=== PATIENT | female | born 1980 | race Caucasian/White ===

== ENCOUNTER 2016-09-05 20:34 | Emergency (ER) | payer MEDICAID ==
[2016-09-05 20:46] VITALS: BP 131/86
[2016-09-05] MEDS ORDERED: Acetaminophen/oxyCODONE 325-5 MG Tab PO ONE (21:01)
[2016-09-05] MEDS ORDERED: Ondansetron 4 MG Tab.DIS PO ONE (21:08)
--- NOTE | 2016-09-05 22:01 | EDM.PDOC ---
ED HPI GENERAL MEDICAL PROBLEM - General Chief Complaint: Upper Extremity Injury/Pain Stated Complaint: POSS BROKEN WRIST Time Seen by Provider: 09/05/16 21:05 Source of Information: Reports: Patient History Limitations: Reports: No Limitations - History of Present Illness INITIAL COMMENTS - FREE TEXT/NARRATIVE: 36 year old female presents for evaluation and treatment of an injury to the right wrist. Injury occurred prior to arrival in the ER. Patient reports she slammed a door, the door came back at her and she attempted to stop it. She reports immediate pain and a deformity to the right wrist. No numbness or tingling. No previous injury to the right wrist. Patient is right handed. Onset: Today Location: Reports: Upper Extremity, Right Right Wrist Pain Score (Numeric/FACES): 10 - Related Data Allergies Allergy/AdvReac Type Severity Reaction Status Date / Time latex Allergy Rash Verified 08/10/15 02:41 Home Meds: Home Meds Acetaminophen/oxyCODONE [Percocet 325-5 MG] 1 tab PO Q6H PRN #15 tablet [Rx] Acetaminophen/oxyCODONE [Percocet 325-5 MG] 1 tab PO Q6H PRN #5 tablet 09/05/16 [Rx] Ondansetron [Zofran ODT] 4 mg PO Q8H PRN #10 tab.dis 09/05/16 [Rx] Ondansetron [Zofran ODT] 4 mg PO Q8H PRN #2 tab.dis 09/05/16 [Rx] Ondansetron [Zofran ODT] 4 mg PO Q8H PRN #5 tab.dis 09/05/16 [Rx] Past Medical History - Past Health History Medical/Surgical History: Denies Medical/Surgical History Gastrointestinal History: Reports: Other (See Below) Other Gastrointestinal History: Groin hernia 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: Neurological History: Reports: Migraines Psychiatric History: Reports: Anxiety, Depression Endocrine/Metabolic History: Reports: Diabetes, Type II Oncologic (Cancer) History: Reports: Cervix, Uterine - Past Surgical History HEENT Surgical History: Reports: Adenoidectomy, Tonsillectomy Female Surgical History: Reports: Section, Hysterectomy Musculoskeletal Surgical History: Reports: Arthroscopic Knee Social & Family History - Family History Family Medical History: Noncontributory - Tobacco Use Smoking Status *Q: Current Every Day Smoker Years of Tobacco use: 1 Packs/Tins Daily: 0.3 Second Hand Smoke Exposure: No - Caffeine Use Caffeine Use: Reports: None - Alcohol Use Days Per Week of Alcohol Use: 0 - Recreational Drug Use Recreational Drug Use: No Drug Use in Last 12 Months: Yes Recreational Drug Type: Reports: Marijuana/Hashish Recreational Drug Use Frequency: Socially Recreational Drug Last Use: 3-4 weeks ago Review of Systems - Review of Systems Review Of Systems: See Below Musculoskeletal: Reports: Arm Pain (right wrist pain), Joint Pain (right wrist pain), Other (deformity to the right wrist) Neurological: Denies: Numbness, Tingling ED EXAM, GENERAL - Physical Exam Exam: See Below Exam Limited By: No Limitations General Appearance: Alert, WD/WN, Mild Distress Respiratory/Chest: No Respiratory Distress Cardiovascular: Normal Peripheral Pulses, Regular Rate, Rhythm Peripheral Pulses: 2+: Radial (L), Radial (R) Extremities: Normal Capillary Refill, Limited Range of Motion (unable to move right wrist due to pain), Other (right snuff box tenderness; tenderness to the right distal radius and ulna; no pain to the right fingers and right metacarpals ) Neurological: Alert, Oriented, Normal Cognition Psychiatric: Normal Affect, Normal Mood Skin Exam: Warm, Dry ED TRAUMA EXTREMITY PROCEDURES - Splinting Right Upper Extremity Splint Site: right forearm Pre-Procedure NV Status: Normal Post-Procedure NV Status: Normal Splint Material: Other (orthoglass) Splint Design: Thumb Spica Applied & Form Fitted By: Provider, Nurse Provider Post-Splint Application NV Check: NV Status Normal, Good Position Complications: No Course - Vital Signs Last Recorded V/S: Last Vital Signs Temp 37.0 C 09/05/16 20:43 Pulse 87 09/05/16 20:43 Resp 16 09/05/16 20:43 BP 131/86 09/05/16 20:43 Pulse Ox 100 09/05/16 20:43 - Orders/Labs/Meds Meds: Medications Discontinued Medications Generic Name Dose Route Start Last Admin Trade Name Freq PRN Reason Stop Dose Admin Ondansetron HCl 4 mg 09/05/16 21:08 09/05/16 21:10 Zofran Odt PO 09/05/16 21:09 4 mg ONETIME ONE Administration Ondansetron HCl 8 mg 09/05/16 22:15 Zofran Odt .ROUTE 09/05/16 22:16 .STK-MED ONE Oxycodone/Acetaminophen 1 tab 09/05/16 21:01 09/05/16 21:08 Percocet 325-5 Mg PO 09/05/16 21:02 1 tab ONETIME ONE Administration Oxycodone/Acetaminophen 5 tab 09/05/16 22:15 Percocet 325-5 Mg .ROUTE 09/05/16 22:16 .STK-MED ONE - Radiology Interpretation Free Text/Narrative:: xray to the right wrist shows a comminuted fracture to the right distal radius and right scaphoid - Re-Assessments/Exams Free Text/Narrative Re-Assessment/Exam: 09/05/16 21:54 I reviewed the xrays with the patient. Patient was splinter in the thumb spika splint. Patient tolerated the procedure well. Percocet given for pain. Discharge instructions as documented. Departure - Departure Time of Disposition: 21:56 Disposition: Home, Self-Care 01 Condition: Fair Clinical Impression: Fracture of radius, Scaphoid fracture - Discharge Information Prescriptions: Acetaminophen/oxyCODONE [Percocet 325-5 MG] 1 tab PO Q6H PRN #5 tablet PRN Reason: Pain Acetaminophen/oxyCODONE [Percocet 325-5 MG] 1 tab PO Q6H PRN #15 tablet PRN Reason: Pain Ondansetron [Zofran ODT] 4 mg PO Q8H PRN #5 tab.dis PRN Reason: Nausea Ondansetron [Zofran ODT] 4 mg PO Q8H PRN #10 tab.dis PRN Reason: Nausea Ondansetron [Zofran ODT] 4 mg PO Q8H PRN #2 tab.dis PRN Reason: Nausea Instructions: Wrist Fracture Treated With Immobilization, [id number] Referrals: Katya Zelaya DO [Primary Care Provider] - Marbin Acharya MD [Physician] - Forms: ED Department Discharge Additional Instructions: You were given medication the ER that can affect your ability to drive and operate machinery. No driving or operating machinery within 12 hours of taking prescription narcotic pain medication. Zofran 1 tab sublingual every 8 hours as needed for nausea. Percocet 1 tab every 4-6 hours as needed for severe pain. No driving or operating machine within 12 hours of taking the Percocet. Percocet can be habit- forming, I recommend you take as few of these as needed to control your pain. Ice the wrist 3 or 4 times a day for 20 of 30 minutes. Elevate the wrists, at the level of the heart if you are able to, as much as you are able to. Follow-up with orthopedics within 7 days. Call [phone] Ortiz. If Dr. Ortiz is not in this week, recommend Dr. Solares. Call to schedule Dr. Solares. Please return to the ER if your symptoms change or worsen.
[2016-09-05] MEDS ORDERED: Acetaminophen/oxyCODONE 325-5 MG Tab ONE (22:15)
[2016-09-05] MEDS ORDERED: Ondansetron 4 MG Tab.DIS ONE (22:15)
--- NOTE | 2016-09-06 09:41 | CR ---
Right wrist: Four views of the right wrist were obtained. Comparison: No previous study. Distal radial fracture is seen through the metaphysis and epiphysis. Alignment remains close to anatomic. Soft tissue swelling is identified. No additional abnormality is seen. Impression: 1. Distal radial fracture and soft tissue swelling. Diagnostic code #3
== END 2016-09-05 22:20 | disposition home or self-care (01) ==
LOC: JD.ED 20:34
DX: S52.501A Unspecified fracture of the lower end of right radius, initial encounter for closed fracture (principal); S62.001A Unspecified fracture of navicular [scaphoid] bone of right wrist, initial encounter for closed fracture; F17.210 Nicotine dependence, cigarettes, uncomplicated; E11.9 Type 2 diabetes mellitus without complications; Z90.710 Acquired absence of both cervix and uterus; Z98.890 Other specified postprocedural states; Z91.040 Latex allergy status; W23.1XXA Caught, crushed, jammed, or pinched between stationary objects, initial encounter
CPT/HCPCS: 29125; 73110; 99284; A9270; 99283-25

== ENCOUNTER 2016-09-22 12:11 | Emergency (ER) | payer MEDICAID ==
[2016-09-22 12:20] VITALS: BP 143/90
--- NOTE | 2016-09-22 12:55 | EDM.PDOC ---
ED HPI GENERAL MEDICAL PROBLEM - General Chief Complaint: Upper Extremity Injury/Pain Stated Complaint: PAIN AND SWELLING IN CASTED RT HAND Time Seen by Provider: 09/22/16 12:40 Source of Information: Reports: Patient History Limitations: Reports: No Limitations - History of Present Illness INITIAL COMMENTS - FREE TEXT/NARRATIVE: Patient is a 36-year-old female who presents ED complaining of swelling, pain, and intermittent numbness to her right hand. Patient injured her right wrist with x-ray obtained September 05, 2016 indicating distal radial fracture and soft tissue swelling. Casting was placed by Dr. Acharya and the patient had a re-x- ray completed yesterday. X-ray yesterday indicated distal radial fracture remaining close to anatomic and alignment. Fiberglass cast is seen. Patient states yesterday she had been developing numbness to her thumb and thus they modified the casting by removing a portion of it and placing moleskin. She contacted Dr. Acharya's office today with instructions to return to the ED to have the cast removed. Pain is currently a 10 out 10 with admission to the ED. She's taken 3 Lortab with no relief. She does have an appointment scheduled to be seen by Dr. Garcia for next Sunday. 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) Other Treatments CUTTER OPERATOR: casted by ortho right forearm Pain Score (Numeric/FACES): 10 - Related Data Allergies Allergy/AdvReac Type Severity Reaction Status Date / Time latex Allergy Rash Verified 09/22/16 12:20 Home Meds: Home Meds Ondansetron [Zofran ODT] 4 mg PO Q8H PRN #5 tab.dis 09/05/16 [Rx] Acetaminophen/HYDROcodone [Lortab 500-5 MG] 1 tab PO Q6H PRN 09/22/16 [History] Past Medical History - Past Health History Medical/Surgical History: Denies Medical/Surgical History Gastrointestinal History: Reports: Other (See Below) Other Gastrointestinal History: Groin hernia [employer]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: Neurological History: Reports: Migraines Psychiatric History: Reports: Anxiety, Depression Endocrine/Metabolic History: Reports: Diabetes, Type II Oncologic (Cancer) History: Reports: Cervix, Uterine - Past Surgical History HEENT Surgical History: Reports: Adenoidectomy, Tonsillectomy Female Surgical History: Reports: Section, Hysterectomy Musculoskeletal Surgical History: Reports: Arthroscopic Knee Social & Family History - Family History Family Medical History: Noncontributory - Tobacco Use Smoking Status *Q: Current Every Day Smoker Years of Tobacco use: 2 Packs/Tins Daily: 0.5 Second Hand Smoke Exposure: No - Caffeine Use Caffeine Use: Reports: None - Alcohol Use Days Per Week of Alcohol Use: 0 - Recreational Drug Use Recreational Drug Use: No Drug Use in Last 12 Months: Yes Recreational Drug Type: Reports: Marijuana/Hashish Recreational Drug Use Frequency: Socially Recreational Drug Last Use: 3-4 weeks ago Review of Systems - Review of Systems Review Of Systems: ROS reveals no pertinent complaints other than HPI. ED EXAM, GENERAL - Physical Exam Exam: See Below Exam Limited By: No Limitations General Appearance: Alert, WD/WN, No Apparent Distress Ears: Hearing Grossly Normal Nose: Normal Inspection Throat/Mouth: Normal Voice, No Airway Compromise Neck: Normal Inspection Respiratory/Chest: No Respiratory Distress, No Accessory Muscle Use Cardiovascular: Normal Peripheral Pulses, Regular Rate, Rhythm Extremities: Other (Short arm fiberglass cast in place. Skin is pink warm and dry. No sensory/motor deficits noted. She has has been increasing pain with movement of her fingers. No obvious swelling present.) Neurological: Alert, Oriented, Normal Cognition, No Motor/Sensory Deficits Psychiatric: Normal Affect, Normal Mood Skin Exam: Warm, Dry, Intact, Normal Color Course - Vital Signs Last Recorded V/S: Last Vital Signs Temp 97.7 F 09/22/16 12:15 Pulse 84 09/22/16 12:15 Resp 18 09/22/16 12:15 BP 143/90 H 09/22/16 12:15 Pulse Ox 100 09/22/16 12:15 - Re-Assessments/Exams Free Text/Narrative Re-Assessment/Exam: Bivalved fiber glass cast to the right forearm/wrist/hand. Patient had immediate pain relief. Cast remained in place with Eugenio wrap applied to keep it in place. Will discharge patient home with instructions as documented. Departure - Departure Time of Disposition: 12:55 Disposition: Home, Self-Care 01 Condition: Good Clinical Impression: Distal radius fracture, right Qualifiers: Encounter type: subsequent encounter Fracture type: closed Fracture morphology : unspecified fracture morphology Fracture healing: with routine healing Qualified Code(s): S52.501D - Unspecified fracture of the lower end of right radius, subsequent encounter for closed fracture with routine healing - Discharge Information Instructions: Cast or Splint Care, [id number], Pain Medicine Instructions, [id number] Referrals: Marbin Acharya MD [Primary Care Provider] - Forms: ED Department Discharge Additional Instructions: Elevate affected extremity when able to reduce swelling and pain. Take ibuprofen and Tylenol in alternating fashion for discomfort. Utilizing Lortab as prescribed for severe pain does not improve with the above therapies. Do not take the Lortab and Tylenol together. Follow-up with Dr. Acharya as scheduled for this coming Sunday. Return to the ED as needed for any new or worsening symptoms. No driving while taking the Lortab.
== END 2016-09-22 13:15 | disposition home or self-care (01) ==
LOC: JD.ED 12:11
DX: S52.501D Unspecified fracture of the lower end of right radius, subsequent encounter for closed fracture with routine healing (principal); F41.9 Anxiety disorder, unspecified; F32.9 Major depressive disorder, single episode, unspecified; E11.9 Type 2 diabetes mellitus without complications; F17.210 Nicotine dependence, cigarettes, uncomplicated; Z90.710 Acquired absence of both cervix and uterus; Z98.890 Other specified postprocedural states; Z91.040 Latex allergy status
CPT/HCPCS: 99282; 99283

== ENCOUNTER 2017-07-13 22:12 | Emergency (ER) | payer MEDICAID ==
[2017-07-13 22:32] VITALS: BP 128/82
[2017-07-13] MEDS ORDERED: Ketorolac 60 MG/2 ML SDV IM ONE (23:04)
--- NOTE | 2017-07-13 23:34 | EDM.PDOC ---
ED HPI GENERAL MEDICAL PROBLEM - General Chief Complaint: Back Pain or Injury Stated Complaint: LUMP IN SHOULDER AND NECK MIGRAINE AND DIZZY Time Seen by Provider: 07/13/17 22:29 Source of Information: Reports: Patient History Limitations: Reports: No Limitations - History of Present Illness INITIAL COMMENTS - FREE TEXT/NARRATIVE: This is a 37-year-old female. She comes tonight because she's been having some severe pain in her left shoulder going into her neck. It started about a week and a half ago and seems to be getting worse and worse. It feels like there is a pulled muscle in her neck. She has been using ointments and icy hot and taking ibuprofen but has not been helping. She thinks she did this while playing volleyball or doing some sort of outdoor activity. She has not been able to get anyone to give her a massage which makes it feel better. Because of the pain in the shoulder going into the neck she is developing a mild headache and she is afraid as cannot turn into a migraine. She denies any other acute symptoms at this time. No fever no chills no nausea or vomiting. 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: Neurological History: Reports: Migraines Psychiatric History: Reports: Anxiety, Depression Endocrine/Metabolic History: Reports: Diabetes, Type II Oncologic (Cancer) History: Reports: Cervix, Uterine - Past Surgical History HEENT Surgical History: Reports: Adenoidectomy, Tonsillectomy Female Surgical History: Reports: Section, Hysterectomy Musculoskeletal Surgical History: Reports: Arthroscopic Knee Social & Family History - Family History Family Medical History: Noncontributory - Tobacco Use Smoking Status *Q: Current Every Day Smoker Years of Tobacco use: 1 Packs/Tins Daily: 0.5 Second Hand Smoke Exposure: Yes - Caffeine Use Caffeine Use: Reports: None - Recreational Drug Use Recreational Drug Use: No ED ROS GENERAL - Review of Systems Review Of Systems: See Below Constitutional: Denies: Fever, Chills HEENT: Reports: No Symptoms Respiratory: Reports: No Symptoms Cardiovascular: Reports: No Symptoms Endocrine: Reports: No Symptoms GI/Abdominal: Reports: No Symptoms : Reports: No Symptoms Musculoskeletal: Reports: Neck Pain, Muscle Pain, Muscle Stiffness Skin: Reports: No Symptoms Neurological: Reports: No Symptoms Psychiatric: Reports: No Symptoms Hematologic/Lymphatic: Reports: No Symptoms ED EXAM, UPPER BACK/NECK PAIN - Physical Exam Exam: See Below Exam Limited By: No Limitations General Appearance: Alert, WD/WN, No Apparent Distress Eye Exam: Bilateral Eye: Normal Inspection Ears Exam: Normal External Exam, Normal Canal, Normal TMs Nose Exam: Normal Inspection Throat/Mouth Exam: Normal Inspection, Normal Lips, Normal Voice, No Airway Compromise Head Exam: Normocephalic Neck Exam: Other (She has marked tenderness of the trapezius muscle on the left shoulder going up into the left side of the neck in the paraspinal muscles, she does appear to have good rotation of the neck though pulls in that area, flexion and extension also pull on that left trapezius muscle, palpation of the muscle is very tight and stiff and very painful, the right shoulder is not particularly tender) Nexus Criteria: No: Posterior, Midline Cervical Tenderness Cardiovascular/Respiratory: Regular Rate, Rhythm, Normal Breath Sounds, No Respiratory Distress Back Exam: Other (She is noted to have some left upper back paraspinal and rhomboid tenderness on palpation) Extremities: Normal Inspection, Normal Range of Motion Neurologic: No Motor/Sensory Deficits, Alert, Oriented x 3 Psychiatric: Normal Affect, Normal Mood Skin Exam: Normal Color, Warm/Dry Course - Vital Signs Last Recorded V/S: Last Vital Signs Temp 97.6 F 07/13/17 22:26 Pulse 84 07/13/17 22:26 Resp BP 128/82 07/13/17 22:26 Pulse Ox 99 07/13/17 22:26 - Orders/Labs/Meds Meds: Medications Discontinued Medications Generic Name Dose Route Start Last Admin Trade Name Freq PRN Reason Stop Dose Admin Ketorolac Tromethamine 60 mg 07/13/17 23:04 07/13/17 23:15 Toradol IM 05/18/18 23:05 60 mg ONETIME ONE Administration Departure - Departure Time of Disposition: 23:32 Disposition: Home, Self-Care 01 Condition: Good Clinical Impression: Muscle spasms of neck Cervical strain, acute Qualifiers: Encounter type: initial encounter Qualified Code(s): S16.1XXA - Strain of muscle, fascia and tendon at neck level, initial encounter - Discharge Information Prescriptions: Orphenadrine [Norflex] 100 mg PO BID PRN #20 tab.er PRN Reason: Spasms Referrals: Katya Zelaya DO [Primary Care Provider] - Additional Instructions: Get the medicine for muscle spasms and start taking it tomorrow as needed, be aware that they can make you sleepy so don't do anything dangerous after you take the medication, use a heating pad to the shoulder and neck to get some warmth deep into the tissues, continue with the Motrin as needed, get one of your family members to give you massage in the neck and the shoulder area at least once a day, follow-up with your family doctor this week for recheck or return to the ER if your symptoms worsen
== END 2017-07-13 23:45 | disposition home or self-care (01) ==
LOC: JD.ED 22:12
DX: S16.1XXA Strain of muscle, fascia and tendon at neck level, initial encounter (principal); E11.9 Type 2 diabetes mellitus without complications; F17.210 Nicotine dependence, cigarettes, uncomplicated; Z91.040 Latex allergy status; X58.XXXA Exposure to other specified factors, initial encounter
CPT/HCPCS: 96372; 99283; J1885

== ENCOUNTER 2021-08-26 08:13 | Emergency (ER) | payer MEDICAID ==
[2021-08-26] MEDS ORDERED: Lactated Ringers 1,000 ML IV ONE (09:44)
[2021-08-26 11:19] VITALS: BP 125/72; PULSE 72
== END 2021-08-26 12:05 | disposition home or self-care (01) ==
LOC: JD.ED 08:13
DX: E86.0 Dehydration (principal); R11.2 Nausea with vomiting, unspecified; Z20.822 Contact with and (suspected) exposure to COVID-19; Z91.018 Allergy to other foods; Z91.040 Latex allergy status
CPT/HCPCS: 36415; 80053; 81001; 83690; 83735; 85025; 87635; 96360; 99284; J7120; U0002

== ENCOUNTER 2022-04-07 14:52 | Emergency (ER) | payer BC, MEDICAID ==
[2022-04-07 15:04] VITALS: BP 138/85; PULSE 74
[2022-04-07] MEDS ORDERED: Metoclopramide 10 MG/2 ML SDV IVPUSH ONE (15:10)
[2022-04-07] MEDS ORDERED: Ketorolac 30 MG/ML SDV IVPUSH ONE (15:10)
[2022-04-07] MEDS ORDERED: diphenhydrAMINE 50 MG/ML SDV IVPUSH ONE (15:10)
[2022-04-07] MEDS ORDERED: Sodium Chloride 0.9% 1,000 ML IV ONE (15:10)
[2022-04-07] MEDS ORDERED: Metoclopramide 10 MG/2 ML SDV IM ONE (15:20)
[2022-04-07] MEDS ORDERED: diphenhydrAMINE 50 MG/ML SDV IM ONE (15:20)
[2022-04-07] MEDS ORDERED: HYDROmorphone 0.5 MG/0.5 ML Syringe IM ONE (15:20)
[2022-04-07] MEDS ORDERED: Ketorolac 60 MG/2 ML SDV IM ONE (15:20)
[2022-04-07] MEDS ORDERED: Dexamethasone 10 MG/ML SDV IM ONE (16:25)
[2022-04-07] MEDS ORDERED: Dexamethasone 10 MG/ML SDV ONE (16:36)
== END 2022-04-07 16:40 | disposition home or self-care (01) ==
LOC: JD.ED 14:52
DX: G43.909 Migraine, unspecified, not intractable, without status migrainosus (principal); E78.00 Pure hypercholesterolemia, unspecified; E11.9 Type 2 diabetes mellitus without complications; F17.210 Nicotine dependence, cigarettes, uncomplicated; Z86.16 Personal history of COVID-19; Z91.040 Latex allergy status; Z91.018 Allergy to other foods; Z79.899 Other long term (current) drug therapy
CPT/HCPCS: 81001; 96372; 99284; J1100; J1170; J1200; J1885; J2765; 99283

== ENCOUNTER 2023-12-04 19:09 | Emergency (ER) | payer BC ==
[2023-12-04 19:47] VITALS: BP 121/87; PULSE 79
== END 2023-12-04 21:09 | disposition home or self-care (01) ==
LOC: JD.ED 19:09
DX: M25.532 Pain in left wrist (principal); E78.00 Pure hypercholesterolemia, unspecified; E11.9 Type 2 diabetes mellitus without complications; J45.909 Unspecified asthma, uncomplicated; F17.210 Nicotine dependence, cigarettes, uncomplicated; Z48.811 Encounter for surgical aftercare following surgery on the nervous system; Z86.16 Personal history of COVID-19; Z91.040 Latex allergy status; Z91.018 Allergy to other foods; Z79.51 Long term (current) use of inhaled steroids; Z79.899 Other long term (current) drug therapy; Z90.710 Acquired absence of both cervix and uterus
CPT/HCPCS: 99283